=== PATIENT | female | born 1955 | race Caucasian/White ===

== ENCOUNTER 2020-12-23 02:36 | Day surgery (SDC) | payer MEDICARE, OTHER, SELFPAY ==
[2020-12-14 14:24] VITALS: BMI 31.3
--- NOTE | 2020-12-23 07:25 | WPDHPUPDATE1 ---
History and Physical Update Update Date/Time: 12/23/20 07:25 History and Physical has been reviewed, including an updated exam of the patient. There are NO changes in the patient's condition. Risks, benefits, and alternatives have been discussed and questions answered. Patient agrees to proceed with procedure.
--- NOTE | 2020-12-23 09:22 | P.PNAN_ITS ---
Anes - Initial Pre Proc Eval Procedure: Operation Date: 12/23/20 10:30 Proposed Procedures p Excision Basal Cell Carcinoma Left Upper Forehead With Frozen Section, Possible Local Tissue Transfer - Georges Vallejo MD Date/Time: 12/23/20 09:22 Surgeon: Georges Vallejo MD Pre Op Diagnosis: Basal Cell Carcinoma Left Upper Forehead Patient Data Age: 65 Gender: F Height: 1.59 m Weight: 79 kg Allergies Allergy/AdvReac Type Severity Reaction Status Date / Time codeine AdvReac Nausea Verified 12/23/20 09:17 Quinolones AdvReac Other Verified 12/23/20 09:17 Home Medications Medication Instructions Recorded Confirmed Type alprazolam 0.25 mg PO BID 12/14/20 12/23/20 History aspirin 650 mg PO DAILY PRN 12/14/20 12/23/20 History cholecalciferol (vitamin D3) 50 mcg PO DAILY 12/14/20 12/23/20 History multivitamin [Multiple Vitamin] 1 tablet PO DAILY 12/14/20 12/23/20 History omeprazole 20 mg PO DAILY PRN 12/14/20 12/23/20 History Patient hx anesthesia problems: none Family hx anesthesia problems: none Results Review: All pre-operative results and documents have been reviewed as part of the pre-operative evaluation. COUNTS INCLUDE 234 BEDS AT THE [facility] Past Medical History Medical History (Updated 12/23/20 @ 09:24 by Alverto Bran MD) Anxiety GERD (gastroesophageal reflux disease) JAMAAL (obstructive sleep apnea) Surgical History Surgical History (Updated 12/23/20 @ 09:24 by Alverto Bran MD) H/O subtotal mastectomy of right breast Social History Social History Smoking packs per day: 1 Smoking cigarettes per day: 20.0 Years smoked: 35 Smoking pack-years: 35.00 Smoking status: Former smoker Tobacco type: cigarettes Smoking end date: 09/10/05 Alcohol intake: never Substance use: never Living arrangements: with family Additional living arrangements comments: S.O. Spiritual care concerns: No Anes - Eval Final PreProcedure Day of Procedure 12/23/20 09:22 Patient weight: obese Heart: regular rate and rhythm Lungs: clear to auscultation Airway: Mallampati scale class II Neurological: alert and oriented Last oral intake: >/= 8 hours ASA classification: III Anesthetic plan: proceed Anesthesia type and monitoring: general GIVS (may use LMA) and standard monitoring Results Review: All pre-operative results and documents have been reviewed as part of the pre-operative evaluation. Informed Consent: The patient's anesthetic plan and its attendant risks and benefits were discussed with the patient/family/POA. Questions were solicited and answers provided to the satisfaction of the patient/family/POA.
[2020-12-23] MEDS: LACTATED RINGERS 1,000 ML 30 ML IV CONT ×2 (09:42→12:30)
[2020-12-23 09:46] VITALS: BP 139/73; PULSE 87; TEMP 36.9; O2SAT 100
[2020-12-23] MEDS: ceFAZolin SODIUM 1 GM VIAL 2 GM IV PUSH (11:04)
[2020-12-23] MEDS: LIDO 1%/EPINEPHRINE/PF 1:200,000 30 ML VIAL INFILTRATE (11:28)
[2020-12-23 12:30] VITALS: BP 117/65; PULSE 88; RESP 14; TEMP 36.6; O2SAT 95
--- NOTE | 2020-12-23 12:41 | W.PM.PROC2 ---
Procedure Note - Detailed Date of Procedure 12/23/20 Pre-op Diagnosis Basal Cell Carcinoma Left Upper Forehead Post-op Diagnosis same Procedure Performed 3.5 cm excision of basal cell carcinoma of the upper mid forehead with frozen section x2 and full-thickness skin graft 10 sq cm Surgeon Georges Vallejo MD [employer] Shayna Anesthesia general Indications Basal cell carcinoma by biopsy Description of Procedure The site on the patient's forehead was marked in the holding area. She was taken to the operating room placed supine on operating table. Time-out was held and confirmed. She was given sedation anesthesia with an LMA. The face and neck were prepped and draped in usual fashion. Site was carefully exposed by cutting some hair. It was marked around the periphery. This area was infiltrated with 1% lidocaine with epinephrine. The excision was carried out just beyond our skin marking hoping for free margins. The most inferior aspect was marked with a suture for 12:00 p.m.. This was then sent to pathology. The diagnosis of basal cell carcinoma was confirmed some details about its type remained. The initial specimen revealed the positive margin in the 5-7 range. A 2nd piece of tissue running from the 5 to 7 o'clock area was taken and sent with a suture at the 5:00 a.m. tip. Pathologist reports that margins were then free. Graft was harvested from the left supraclavicular fossa. This was defatted and inset to the forehead with nylon suture and the tie-over dressing. The donor site was closed with 4-0 Vicryl suture and glue. Estimated blood loss was 5 milliliter. She received 2 g of Ancef preop. Estimated Blood Loss 5 Drains No Packing No Pathology yes Complications No immediate complications Condition stable Disposition same day
[2020-12-23 13:00] VITALS: BP 120/62; PULSE 85; RESP 14; O2SAT 96
[2020-12-23 13:25] VITALS: BP 124/60; PULSE 68; RESP 16
== END 2020-12-23 13:40 | disposition home or self-care (01) ==
PROVIDERS: PCP Family Medicine; Visit Provider Plastic Surgery
PROC: (CPT 11644; principal; 2020-12-23 10:30)
DX: C44.319 Basal cell carcinoma of skin of other parts of face (principal); K21.9 Gastro-esophageal reflux disease without esophagitis; G47.33 Obstructive sleep apnea (adult) (pediatric); F41.9 Anxiety disorder, unspecified; Z79.82 Long term (current) use of aspirin; Z87.891 Personal history of nicotine dependence; E66.9 Obesity, unspecified; Z68.32 Body mass index [BMI] 32.0-32.9, adult
CPT/HCPCS: 11644; 15240; 88305; 88331; 88332; A9270; J0690; J2704; J3010; J7120